=== PATIENT | female | born 1955 | race Caucasian/White ===

== ENCOUNTER 2023-02-08 15:34 | Emergency (ER) | payer OTHER ==
--- NOTE | 2023-02-08 16:18 | NUR ---
PT TRIAGED. PT STABLE. PLACED PT IN ER WAITING LOBBY. WILL CONTINUE TO MONITOR
[2023-02-08 16:19] VITALS: BP_SYST 117
--- NOTE | 2023-02-08 18:00 | NUR ---
Placed in room 04 . Placed on rn cardiac, blood pressure machine and pulse oximeter. To gown for exam. Side rails up. Report given to PO ALCANTAR AND PO SANDERS.
--- NOTE | 2023-02-08 18:07 | NUR ---
pt bib daughter c/o dizziness and bleeding ear since wednesday. pt states she was in the opthalmologist office on wednesday when she felt her ear leaking she stuck her finger in her ear and noticed the bleeding. pt states she did not feel any symptoms till today when she started feeling lightheadness and dizziness. pt has a hx of htn, dm, and cholestrol, and arthritis. pt states she feels a pressure feeling after going to the urgent care for a ear lavage. pt is gcs 15 eyes open spontaneously. pt is oriented to person, place, time, and situation. pt obeys commands. pt denies visual problems. and complains of pressure feeling in her left ear. no active bleeding noted at this time. pt skin is warm to touch. pt denies sob and chest pain. pt denies abd, urinary or bowel issues at this time. pt in room 4 with daughter at bedside on the monitor. plan of care continues.
--- NOTE | 2023-02-08 18:16 | NUR ---
ER at bedside examining patient.
--- NOTE | 2023-02-08 18:30 | NUR ---
Saw patient and she is stable. Awaiting MD instructions at this time.
[2023-02-08] MEDS ORDERED: MECL-225 PO (19:20)
--- NOTE | 2023-02-08 19:21 | NUR ---
report given to shirley benitez
[2023-02-08 19:37] VITALS: BP_SYST 153
--- NOTE | 2023-02-08 19:38 | NUR ---
Patient given written and verbal discharge instructions and verbalizes understanding. ER MD discussed with patient the results and treatment provided. Patient in stable condition. ID arm band removed. Rx of MECLIZINE given. Patient educated on DIZZINESS and to follow up with PMD. Pain Scale 0. Opportunity for questions provided and answered. Medication side effect fact sheet provided.
--- NOTE | 2023-02-08 19:38 | NUR ---
REPORT RECIEVED FROM TABITHA RN
== END 2023-02-08 19:37 | disposition home or self-care (01) ==
LOC: SED 15:34
DX: R42 Dizziness and giddiness (principal); H92.23 Otorrhagia, bilateral; E11.9 Type 2 diabetes mellitus without complications; I10 Essential (primary) hypertension; E78.5 Hyperlipidemia, unspecified; Z79.899 Other long term (current) drug therapy
CPT/HCPCS: 99282